=== PATIENT | female | born 1960 | race Caucasian/White ===

== ENCOUNTER → 2016-06-16 | Outpatient (CLI) | payer OTHER ==
[~2016-06-16] MED LIST: AMIT50TA3 PO; ATOR10TA82 PO; CITA20TA4 PO; CLON0.5T3 PO; DICY10CA12 PO; DICY20TA10 PO; LPT10 PO; OMEP20CA59 PO; PRLSR20 PO; SIME1CHW17 PO; VALA500T60 PO; ZNTT/150 PO
--- NOTE | 2016-06-16 16:34 | MAMMOGRAPHY REPORT ---
BILATERAL DIGITAL SCREENING MAMMOGRAM TOMOSYNTHESIS WITH CAD: 06/16/2016 TECHNIQUE: Breast tomosynthesis in addition to standard 2D mammography was performed. Current study was also evaluated with a Computer Aided Detection (CAD) system. COMPARISON: Comparison is made to exams dated: 06/11/2015 mammogram, 06/10/2014 mammogram, 04/16/2013 mammogram, 04/03/2012 mammogram, 03/29/2011 mammogram, and 03/23/2010 mammogram - [facility]. BREAST COMPOSITION: There are scattered areas of fibroglandular density in both breasts. FINDINGS: No suspicious masses, calcifications, or areas of architectural distortion are noted in e ither breast. There has been no significant interval change compared to prior exams. IMPRESSION: ACR BI-RADS CATEGORY 1: NEGATIVE There is no mammographic evidence of malignancy. A 1 year screening mammogram is recommended. The p atient will receive written notification of the results. Approximately 10% of breast cancers are not detected with mammography. A negative mammographic repor t should not delay biopsy if a clinically suggestive mass is present. Aye Means M.D. /:06/16/2016 13:30:02 Genetics Nurse: Nel CONTRERAS)(Elva), [facility] letter sent: Normal 1/2 BI-RADS Code: ACR BI-RADS Category 1: Negative
== END | disposition home or self-care (01) ==
LOC: C.MAMM 13:07
PROVIDERS: ATTEND Obstetrics & Gynecology
DX: Z12.31 Encounter for screening mammogram for malignant neoplasm of breast (principal)

== ENCOUNTER → 2016-07-14 | Outpatient (CLI) | payer OTHER ==
[2016-07-14 12:23] LABS: BASO % 0.6 %; BASO ABS # 0.04 K/uL (0-0.2); COMPLETE YES; EOS % 4.5 %; HEMATOCRIT 44.2 % (37-47); IG% 0.3 %; LYMPH % 32.7 %; LYMPH ABS # 2.05 K/uL (1.2-3.4); MEAN CELL VOLUME 91.5 fL (80-100); MEAN CORPUSCULAR HEMOGLOBIN 30.4 pg (25-34); MEAN CORPUSCULAR HGB CONC 33.3 g/dl (32-36); MEAN PLATELET VOLUME 8.6 fL (7.4-10.4); MONO % 8.1 %; NEUT % 53.8 %; PLATELET COUNT 268 K/uL (130-400); RED BLOOD COUNT 4.83 M/uL (4.2-5.4); WHITE BLOOD COUNT 6.26 K/uL (4.8-10.8)
[2016-07-14 12:30] LABS: ALT/SGPT 56 U/L (12-78); BLOOD UREA NITROGEN 22 mg/dl (7-18); BUN/CREATININE RATIO 24.2 (10-20); CARBON DIOXIDE 27 mmol/L (21-32); CHLORIDE 106 mmol/L (98-107); CHOLESTEROL 186 mg/dl (0-200); GLUCOSE 140 mg/dl (70-99); SODIUM 140 mmol/L (136-145); TRIGLYCERIDES 125 mg/dl (0-150); VERY LOW DENSITY LIPOPROT CALC 25 mg/dl
[2016-07-14 13:14] LABS: ALB/GLOB RATIO 1.2 (0.9-2); ALKALINE PHOSPHATASE 118 U/L (45-117); AST/SGOT 24 U/L (15-37); CHOLESTEROL/HDL RATIO 3.5; HDL CHOLESTEROL 53 mg/dl; LDL CHOLESTEROL CALCULATED 108 mg/dl
== END | disposition home or self-care (01) ==
LOC: C.LABBFT 09:12
PROVIDERS: ATTEND Internal Medicine
DX: Z00.00 Encounter for general adult medical examination without abnormal findings (principal); E78.5 Hyperlipidemia, unspecified; R10.9 Unspecified abdominal pain

== ENCOUNTER → 2016-07-27 | Outpatient (CLI) | payer OTHER ==
[2016-07-27 12:46] LABS: ESTIMATED AVERAGE GLUCOSE 148 mg/dl; HA1C FLAG Normal (Normal)
== END | disposition home or self-care (01) ==
LOC: C.LABBFT 10:30
PROVIDERS: ATTEND Internal Medicine
DX: R73.01 Impaired fasting glucose (principal)

== ENCOUNTER → 2016-08-02 | Outpatient (CLI) | payer OTHER ==
[2016-08-06 23:50] LABS: IGA SERUM 232 mg/dL (81-463); TIS TRANS IGA 1 U/mL (<4)
== END | disposition home or self-care (01) ==
LOC: C.LAB1850 14:56
PROVIDERS: ATTEND Internal Medicine
DX: R14.0 Abdominal distension (gaseous) (principal)

== ENCOUNTER → 2016-09-15 | Day surgery (SDC) | payer OTHER ==
[2016-09-07 08:35] VITALS: Ht 160 cm; Wt 68.2 kg
[~2016-09-15] VITALS: Ht 160 cm; Wt 68.2 kg
[~2016-09-15] MED LIST changes: -AMIT50TA3 PO; -ATOR10TA82 PO; +ATOR10TA88 PO; -DICY10CA12 PO; -LPT10 PO; -OMEP20CA59 PO; -SIME1CHW17 PO
[2016-09-15 11:44] VITALS: BP 141/78; PULSE 65; O2SAT 95
--- NOTE | 2016-09-19 17:07 | Procedure Note ---
Breath Hydrogen Test Interpretation Assessment: Findings consistent with Small Intestinal bacterial overgrowth. Plan: Start Xifaxan 550mg by mouth TID for 14 days. Followup in our office for further evaluation and recommendations.
== END | disposition home or self-care (01) ==
LOC: C.GI 08:19
PROVIDERS: ATTEND Internal Medicine
DX: R10.9 Unspecified abdominal pain (principal); R14.0 Abdominal distension (gaseous)

== ENCOUNTER 2017-01-24 09:40 | Emergency (ER) | payer OTHER ==
[~2017-01-24] VITALS: Ht 157.5 cm; Wt 68.3 kg
[~2017-01-24 09:40] MED LIST changes: +ATOR10TA82 PO; -ATOR10TA88 PO
[2017-01-24 09:45] VITALS: TEMP 36.3; Ht 157.5 cm; Wt 68.3 kg
[2017-01-24] MEDS ORDERED: KETOROLAC TROMETHAMINE 30 MG/ML VIAL IV STA (10:01)
[2017-01-24] MEDS ORDERED: ONDANSETRON INJ 2 MG/ML 2 ML VIAL IV STA (10:01)
[2017-01-24 10:33] LABS: BASO % 1.1 %; BASO ABS # 0.11 K/uL (0-0.2); COMPLETE YES; HEMATOCRIT 47.5 % (37-47); IG% 0.1 %; LYMPH % 27.2 %; LYMPH ABS # 2.61 K/uL (1.2-3.4); MEAN CORPUSCULAR HEMOGLOBIN 30.6 pg (25-34); MEAN CORPUSCULAR HGB CONC 34.7 g/dl (32-36); MEAN PLATELET VOLUME 8.8 fL (7.4-10.4); MONO % 6.7 %; NEUT % 64.9 %; PLATELET COUNT 318 K/uL (130-400)
--- NOTE | 2017-01-24 10:44 | DIAGNOSTIC IMAGING REPORT ---
PA CHEST WITH ABDOMINAL SERIES CLINICAL HISTORY: Epigastric abdominal pain. Bloating. FINDINGS: A PA chest radiograph is compared to study dated 01/09/2015. The cardiomediastinal silhouette is unremarkable. The lungs and pleural spaces are clear. No pneumothorax is seen. The skeletal structures are osteopenic. The bony thorax is grossly intact. There is mild S-shaped thoracolumbar scoliosis. Supine and erect abdominal radiographs are correlated with abdominal CT dated 01/09/2015. There is a nonobstructed abdominal bowel gas pattern. No evidence of intraperitoneal free air is seen. There are small nonobstructing left renal calculi. There is no radiographic evidence of ureteral stone. Small phleboliths are noted in the pelvis. Mild lumbosacral spondylosis is observed. The lumbosacral spine and bony pelvis appear intact. IMPRESSION: 1. No active disease in the chest. 2. Nonobstructed abdominal bowel gas pattern. 3. Nonobstructing left renal calculi. Electronically signed by: Darrin Marsh M.D. 01/24/2017 10:43 AM Dictated Date/Time: 01/24/2017 10:42 AM
[2017-01-24 10:53] LABS: BUN/CREATININE RATIO 19.4 (10-20); CALCIUM 10.4 mg/dl (8.5-10.1); CREATININE 1.06 mg/dl (0.60-1.20); POTASSIUM 3.8 mmol/L (3.5-5.1)
[2017-01-24 11:14] VITALS: BP 140/79; PULSE 69; O2SAT 99
[2017-01-24] MEDS ORDERED: OPTIRAY 320 IV PRN (11:30)
--- NOTE | 2017-01-24 13:46 | EMERGENCY ROOM VISIT NOTE ---
History First contact with patient: 09:49 Chief Complaint: MEDICATION REFILL REQUEST Stated Complaint: MEDICATION REFILL REQUESTED History of Present Illness The patient is a 56 year old female who presents to the Emergency Room stating that she wanted a prescription refill for Cipro. The patient initially stated all she wanted was the prescription that she knew what was wrong with her. She stated that there is bacteria in her stomach and that she had all the testing done in the past and does not need any further testing. She states that she this has been gone on for the last 2-1/2 weeks and she has not been able to sleep. She states she has pain in the epigastric region radiating to her back. She states she had a test done in August and was placed on Cipro. She states that she was told at that time the bacteria could come back. She thinks it is back and would like more antibiotics. She initially did not want evaluated but later agreed to be evaluated and treated in the ER. The patient states she felt warm but did not take her temperature. The patient admits to slight nausea but denies any vomiting. The patient denies any change in bowel habits. The patient denies any urinary symptoms of frequency, urgency, dysuria or hematuria. The patient states that she has not yet gotten established with her [facility] PCP. She was seen in August by a [facility] physician in front of a hospital who referred her to Dr. solano for the test for her stomach. Review of Systems 10 system review was performed and was negative unless stated otherwise history of present illness. Past Medical/Surgical History Medical Problems: (1) Diabetes (2) Helicobacter pylori (H. pylori) infection (3) Herpes zoster (4) Hypertension (5) Kidney stones Family History Cancer Diabetes mellitus Gallbladder disease Heart disease Hypertension Kidney disease Kidney stones Seizures Social History Smoking Status: Never Smoker Alcohol Use: occasionally Marital Status: in relationship Housing Status: lives with significant other Occupation Status: employed Current/Historical Medications Unable to Obtain Active Prescriptions or Reported Meds Physical Exam Vital Signs Date Time Temp Pulse Resp B/P (MAP) Pulse Ox O2 Delivery O2 Flow Rate FiO2 01/24/17 11:14 69 20 140/79 99 Room Air 01/24/17 09:45 36.3 78 22 158/94 99 Room Air Physical Exam GENERAL: 56-year-old white female appears agitated walking around the exam room arching her back sticking her stomach out. She is walking around like she is . MENTAL Status: Alert and oriented 3. The patient if the patient appears very agitated and anxious MOUTH: Mucosa is moist NECK: Supple, no lymphadenopathy noted. No carotid bruits noted. LUNGS: Clear auscultation without wheezes rales or rhonchi. CARDIAC: Regular rate and rhythm without murmur. Pulses is full and equal throughout. BACK: No CVA tenderness noted. ABDOMEN: Positive bowel sounds all 4 quadrants. Patient is pushing out her stomach and therefore it is difficult to evaluate. She does have tenderness in the epigastric region otherwise nontender. Cannot evaluate for organomegaly or masses. EXTREMITIES: No cyanosis or edema noted. Medical Decision & Procedures ER Provider Diagnostic Interpretation: PA CHEST WITH ABDOMINAL SERIES CLINICAL HISTORY: Epigastric abdominal pain. Bloating. FINDINGS: A PA chest radiograph is compared to study dated 01/09/2015. The cardiomediastinal silhouette is unremarkable. The lungs and pleural spaces are clear. No pneumothorax is seen. The skeletal structures are osteopenic. The bony thorax is grossly intact. There is mild S-shaped thoracolumbar scoliosis. Supine and erect abdominal radiographs are correlated with abdominal CT dated 01/09/2015. There is a nonobstructed abdominal bowel gas pattern. No evidence of intraperitoneal free air is seen. There are small nonobstructing left renal calculi. There is no radiographic evidence of ureteral stone. Small phleboliths are noted in the pelvis. Mild lumbosacral spondylosis is observed. The lumbosacral spine and bony pelvis appear intact. IMPRESSION: 1. No active disease in the chest. 2. Nonobstructed abdominal bowel gas pattern. 3. Nonobstructing left renal calculi. Electronically signed by: Darrin Marsh M.D. 01/24/2017 10:43 AM Dictated Date/Time: 01/24/2017 10:42 AM Laboratory Results 01/24/17 10:10 Red Blood Count 5.40, Mean Corpuscular Volume 88.0, Mean Corpuscular Hemoglobin 30.6, Mean Corpuscular Hemoglobin Concent 34.7, Mean Platelet Volume 8.8, Neutrophils (%) (Auto) 64.9, Lymphocytes (%) (Auto) 27.2, Monocytes (%) (Auto) 6.7, Eosinophils (%) (Auto) 0.0, Basophils (%) (Auto) 1.1, Neutrophils # (Auto) 6.23, Lymphocytes # (Auto) 2.61, Monocytes # (Auto) 0.64, Eosinophils # (Auto) 0.00, Basophils # (Auto) 0.11 01/24/17 10:10 Test 01/24/17 10:10 White Blood Count 9.60 K/uL (4.8-10.8) Red Blood Count 5.40 M/uL (4.2-5.4) Hemoglobin 16.5 g/dL (12.0-16.0) Hematocrit 47.5 % (37-47) Mean Corpuscular Volume 88.0 fL (80-100) Mean Corpuscular Hemoglobin 30.6 pg (25-34) Mean Corpuscular Hemoglobin Concent 34.7 g/dl (32-36) Platelet Count 318 K/uL (130-400) Mean Platelet Volume 8.8 fL (7.4-10.4) Neutrophils (%) (Auto) 64.9 % Lymphocytes (%) (Auto) 27.2 % Monocytes (%) (Auto) 6.7 % Eosinophils (%) (Auto) 0.0 % Basophils (%) (Auto) 1.1 % Neutrophils # (Auto) 6.23 K/uL (1.4-6.5) Lymphocytes # (Auto) 2.61 K/uL (1.2-3.4) Monocytes # (Auto) 0.64 K/uL (0.11-0.59) Eosinophils # (Auto) 0.00 K/uL (0-0.5) Basophils # (Auto) 0.11 K/uL (0-0.2) RDW Standard Deviation 42.0 fL (36.4-46.3) RDW Coefficient of Variation 13.2 % (11.5-14.5) Immature Granulocyte % (Auto) 0.1 % Immature Granulocyte # (Auto) 0.01 K/uL (0.00-0.02) Anion Gap 10.0 mmol/L (3-11) Est Creatinine Clear Calc Drug Dose 52.4 ml/min Estimated GFR () 67.0 Estimated GFR (Non- 57.8 BUN/Creatinine Ratio 19.4 (10-20) Calcium Level 10.4 mg/dl (8.5-10.1) Total Bilirubin 1.0 mg/dl (0.2-1) Direct Bilirubin 0.2 mg/dl (0-0.2) Aspartate Amino Transf (AST/SGOT) 19 U/L (15-37) Alanine Aminotransferase (ALT/SGPT) 50 U/L (12-78) Alkaline Phosphatase 143 U/L (45-117) Total Protein 8.9 gm/dl (6.4-8.2) Albumin 4.8 gm/dl (3.4-5.0) Lipase 222 U/L (73-393) Medications Administered Medications (Trade) Dose Ordered Sig/Vicki Route Start Time Stop Time Status Last Admin Dose Admin Ondansetron HCl (Zofran Inj) 4 mg NOW STAT IV 01/24/17 10:01 01/24/17 10:03 DC 01/24/17 10:15 4 MG Ketorolac Tromethamine (Toradol Inj) 30 mg NOW STAT IV 01/24/17 10:01 01/24/17 10:03 DC 01/24/17 10:15 30 MG ED Course The patient was evaluated. The patient's EMR was reviewed. The patient had a breath hydrogen test done on September [address] solano. It revealed small intestinal bacterial overgrowth. She was placed on Xifaxan 550 mg 3 times a day for 14 days. The prescription she showed me was for Cipro from her family doctor, Dr. Linder filled on 09/16/2016. IV access was obtained. CBC and differential, renal profile, LFTs and lipase levels were ordered. The patient was given Toradol 30 mg IV for pain. Abdominal series x-ray was ordered interpreted by the radiologist and myself as above without any acute findings. Labs are reviewed. Patient's white count was normal. Her glucose is elevated at 169 but she is diabetic. Alkaline phosphatase was slightly elevated. The patient was informed of all findings. A CT of the abdomen and pelvis was ordered and she is in agreement with treatment plan.. I also talked with Dr. solano about the patient. He stated that the test that he performed on the patient in August has a very large range of sensitivity from 15-80%. He stated he would be willing to see the patient in follow-up. While awaiting and prepping for her CAT scan with oral contrast the patient took out her IV and left the ER without her nurse knowing. Please see the nurse's note. Medical Decision Differential diagnosis include viral gastritis, GERD, peptic ulcer disease, small bowel obstruction, bowel perforation, acute pancreatitis, acute cholecystitis Medication Reconcilliation Current Medication List: was personally reviewed by me Blood Pressure Screening Patient's blood pressure: Normal blood pressure Impression Primary Impression: Epigastric pain Departure Information Dispostion Against Medical Advice Prescriptions Unable to Obtain Active Prescriptions or Reported Meds Referrals Thuy Saxena D.O. (PCP) Patient Instructions My [facility]
== END 2017-01-24 13:09 | disposition left against medical advice (07) ==
LOC: C.EDB 09:41 → C.EDA 13:09
DX: R10.13 Epigastric pain (principal); E11.9 Type 2 diabetes mellitus without complications; I10 Essential (primary) hypertension; Z87.442 Personal history of urinary calculi; Z83.3 Family history of diabetes mellitus; Z82.49 Family history of ischemic heart disease and other diseases of the circulatory system; Z84.1 Family history of disorders of kidney and ureter; Z82.0 Family history of epilepsy and other diseases of the nervous system

== ENCOUNTER → 2017-06-19 | Outpatient (CLI) | payer OTHER ==
--- NOTE | 2017-06-20 07:40 | MAMMOGRAPHY REPORT ---
BILATERAL DIGITAL SCREENING MAMMOGRAM TOMOSYNTHESIS WITH CAD: 06/19/2017 CLINICAL HISTORY: Routine screening. Patient has no complaints. TECHNIQUE: Breast tomosynthesis in addition to standard 2D mammography was performed. Current study was also evaluated with a Computer Aided Detection (CAD) system. COMPARISON: Comparison is made to exams dated: 06/16/2016 mammogram, 06/11/2015 mammogram, 06/10/2014 m ammogram, 04/16/2013 mammogram, 04/03/2012 mammogram, and 03/29/2011 mammogram - [facility]ter. BREAST COMPOSITION: There are scattered areas of fibroglandular density in both breasts. FINDINGS: The parenchymal pattern is unchanged. No developing mass, architectural distortion or clus ter of suspicious microcalcifications is seen in either breast. IMPRESSION: ACR BI-RADS CATEGORY 2: BENIGN There is no mammographic evidence of malignancy. A 1 year screening mammogram is recommended. The pa tient will receive written notification of the results. Approximately 10% of breast cancers are not detected with mammography. A negative mammographic report should not delay biopsy if a clinically suggestive mass is present. Raven Bernal M.D. ay/:06/19/2017 12:39:08 Perinatology Physician: Shanell PATEL(Kathe)(M), [facility] letter sent: Normal 1/2 BI-RADS Code: ACR BI-RADS Category 2: Benign
== END | disposition home or self-care (01) ==
LOC: C.MAMM 11:45
PROVIDERS: ATTEND Obstetrics & Gynecology
DX: Z12.31 Encounter for screening mammogram for malignant neoplasm of breast (principal)

== ENCOUNTER 2024-12-16 22:01 | Observation (INO) ==
[2024-12-16] MEDS: ACETAMINOPHEN 1,000 MG/100 ML VIAL IV STA (22:53)
[2024-12-16] MEDS: SODIUM CHLORIDE 0.9% 1,000 ML IV ONE (22:54)
--- NOTE | 2024-12-16 23:03 | Emergency Department Note ---
Impression & Plan Hydronephrosis due to obstruction of ureter, Ureterolithiasis, Complicated urinary tract infection, Acute left flank pain ED Provider Note NAME: LAURENCE FELDER AGE: 64 SEX: F : 1960 ARRIVES VIA: Walk-In INFORMANT: Patient ED PROVIDER(S): Juan Vance MD CHIEF COMPLAINT: Left-sided abdominal pain, nausea and vomiting. PLAN: Disposition: Admit MEDICAL DECISION MAKING: The patient is a pleasant 64-year-old woman with a past medical history of nephrolithiasis, hypertension, hyperlipidemia, diabetes, GERD who presents to the Emergency Department via walk-in companied by family for evaluation of left flank/abdominal pain that began abruptly this evening with associated nausea and vomiting. Denies any diarrhea. She reports urinary urgency but denies burning or blood in her urine. She denies any fevers, cough, congestion, chest pain or shortness of breath. On evaluation the patient is uncomfortable no acute distress, afebrile blood pressure 150s/80s and vital signs otherwise stable. She appears clinically dry. She exhibits mild left flank and left lower abdominal discomfort without discrete tenderness. EKG without overt acute ischemia. WBC 13.2 K with neutrophilia but no left shift, nonspecific. H/H and plates within normal limits. Chemistry without metabolic acidosis. LFTs unremarkable. Lipase is normal. UA is suspicious for infection with WBCs and 4+ bacteria albeit with negative nitrites. CT of the abdomen pelvis was completed and per my preliminary independent interpretation demonstrates moderate left-sided hydroureteronephrosis with suspected 6 mm obstructing ureteral stone at the UVJ. Upon evaluation patient did report feeling improvement following IV fluid hydration, IV APAP, Toradol, famotidine and Zofran. She reported pain had improved to a 6/10. Vital signs remained stable. Blood cultures were ordered and treatment initiated for infected ureteral stone with IV Zosyn. Patient does agree with plan for admission for further management. Dr. Morales, [facility] hospitalist, to evaluate the patient for admission. Finally CT report for further characterizes obstructing UVJ stone measuring 7.2 mm. Additional diverticulitis of the sigmoid colon is described without abscess or perforation. Further management per admitting team. Triage Nursing notes reviewed and agree them. Prior/external medical records reviewed Vital Signs: reviewed Differential diagnosis: Renal colic, UTI, appendicitis, diverticulitis, mesenteric ischemia, aortic pathology, infections, inflammatory bowel disease, PUD, biliary pathology, as well as other pathologies. ER treatment provided: See below. Diagnostics interpreted by me: ECG: Normal sinus rhythm, 66 bpm, no ectopy, nonspecific T wave abnormality, no overt ST elevation or depression, QTc 439, QRS 64. Cardiac Monitoring: An order for continuous cardiac monitoring was placed and demonstrated Normal sinus rhythm, 66 bpm, no ectopy Laboratory studies: See below Imaging studies: See below Consultation(s): Dr. Morales, [facility] hospitalist, to evaluate the patient for admission. HPI: Per MDM. ROS: See above HPI for pertinent positives & negatives. A total of 10 systems reviewed and were otherwise negative. VITALS:See Below PHYSICAL EXAMINATION: GENERAL: Awake, alert, uncomfortable-appearing, in no distress HENT: Normocephalic, atraumatic. Oropharynx with dry mucous membranes and otherwise unremarkable. EYES: Normal conjunctiva. Sclera non-icteric. NECK: Supple. No nuchal rigidity. FROM. No JVD. RESPIRATORY: Clear to auscultation. CARDIAC: Regular rate, normal rhythm. Extremities warm and well perfused. Pulses equal. ABDOMEN: Soft, non-distended. Mild left flank and lower abdominal discomfort without discrete tenderness to palpation. No rebound or guarding. No masses. MUSCULOSKELETAL: Chest examination reveals no tenderness. The back is symmetrical on inspection without obvious abnormality. There is no CVA tenderness to palpation. No joint edema. LOWER EXTREMITIES: Calves are equal size bilaterally and non-tender. No edema. No discoloration. NEURO: Normal sensorium. No sensory or motor deficits noted. SKIN: No rash or jaundice noted. Juan Vance MD Past Med/Surg History Problem List (Updated 12/17/24 @ 05:45 by Juan Vance MD) Acute left flank pain (Acute) Complicated urinary tract infection (Acute) Ureterolithiasis (Acute) Hydronephrosis due to obstruction of ureter (Acute) Hypertension (Chronic) Herpes zoster (Chronic) Diabetes (Chronic) Medical History Abdominal pain per granddaughter, saw pcp dr. eagle shortly after cataract surg 09/25/24, states "they are not sure if it's her hernia or her gallbladder, they checked her liver studies at [facility] and said it was normal." Encounter for pre-operative examination IBS (irritable bowel syndrome) Hiatal hernia GERD (gastroesophageal reflux disease) Diabetes Depression Anxiety Migraines Short-term memory loss has a pcp appt today 09/23/24 to see about memory issues > Dr. Nina at [facility]. has gotten progressively worse over 3 mos time per granddaughter, no known TIA's or neuro events Insomnia Hypertension Hyperlipidemia Surgical History Hx of left cataract extraction (09/25/24) History of tooth extraction History of bilateral tubal ligation Social History Smoking Status: Never smoker Second Hand Exposure: No; Do You Dip or Chew Tobacco: No; Hx Alcohol Use: No Hx Substance Use: Yes Last Used Substance: Days (ago) Last Used Substance Other:: cbd gummies daily Substance Use Type Other:: cbd gummies daily Preferred Language: Hungarian Communication Ability: Effective Structures Engineer Required: No Beliefs That Will Affect Care: None Current Living Situation: Family Feels Safe at Home: Yes Safety Concerns: Feels Safe At This Time Assistive Devices: Cane and Glasses Allergies Allergies Allergy/AdvReac Type Severity Reaction Status Date / Time No Known Allergies Allergy Verified 10/16/24 07:42 Home Meds Home Medications Medication Instructions Recorded Confirmed Cbd Gummies 1 dose PO HS 09/23/24 12/17/24 clozapine 25 mg tablet 25 mg PO HS 09/23/24 12/17/24 omeprazole 20 mg tablet,delayed 20 mg PO DAILYBB 09/23/24 12/17/24 release cholecalciferol (vitamin D3) 25 25 mcg PO DAILY 12/17/24 12/17/24 mcg (1,000 unit) tablet (Vitamin D3) clonazepam 0.5 mg tablet 0.5 mg PO TID 12/17/24 12/17/24 famotidine 20 mg tablet 20 mg PO AMHS 12/17/24 12/17/24 metformin 500 mg tablet,extended 1,000 mg PO QAM 12/17/24 12/17/24 release 24 hr ykqayrgd-qkpzuap-gjnm-lutein tablet 1 tab PO DAILY 12/17/24 12/17/24 potassium 99 mg tablet 99 mg PO DAILY 12/17/24 12/17/24 sucralfate 1 gram tablet 1 g PO ACHS 12/17/24 12/17/24 Results & Data (ED) Vital Signs Vital Signs - 24 hr 12/16/24 22:13 12/16/24 23:44 12/16/24 23:59 Temperature 36.5 C Temperature Source Temporal Artery Scan Pulse Rate 76 70 Pulse Rate [Apical] 69 Pulse Rate from SpO2 Sensor Respiratory Rate 16 18 Respiratory Effort / Characteristics Non-Labored Spontaneous Non-Labored Spontaneous Respiratory Depth Normal Normal Respiratory Pattern Regular Blood Pressure 156/81 H Blood Pressure [Left Arm] 100/79 Blood Pressure Mean 106 Blood Pressure Mean [Left Arm] 86 Pulse Oximetry 97 95 Oxygen Delivery Method Room Air Room Air Sepsis Recent Fever Within 48 Hours No Sepsis New/Unexplained Change in Mental Status N/A Sepsis Action Taken by Nursing No Action Required 12/17/24 00:21 12/17/24 00:30 12/17/24 01:00 Temperature Temperature Source Pulse Rate 66 66 60 Pulse Rate [Apical] Pulse Rate from SpO2 Sensor Respiratory Rate 24 17 17 Respiratory Effort / Characteristics Respiratory Depth Respiratory Pattern Blood Pressure 154/84 H 139/84 150/84 H Blood Pressure [Left Arm] Blood Pressure Mean 107 99 116 Blood Pressure Mean [Left Arm] Pulse Oximetry 94 93 95 Oxygen Delivery Method Sepsis Recent Fever Within 48 Hours Sepsis New/Unexplained Change in Mental Status Sepsis Action Taken by Nursing 12/17/24 01:00 12/17/24 01:00 Temperature Temperature Source Pulse Rate 64 Pulse Rate [Apical] Pulse Rate from SpO2 Sensor 63 Respiratory Rate 21 Respiratory Effort / Characteristics Respiratory Depth Respiratory Pattern Blood Pressure 150/84 H Blood Pressure [Left Arm] Blood Pressure Mean 116 Blood Pressure Mean [Left Arm] Pulse Oximetry 93 Oxygen Delivery Method Sepsis Recent Fever Within 48 Hours Sepsis New/Unexplained Change in Mental Status Sepsis Action Taken by Nursing Laboratory Data Attestation: I reviewed the patient's lab results. 12/16/24 22:52 12/16/24 22:52 Lab Results 12/16/24 12/17/24 Range/Units 22:52 01:15 WBC 13.23 H (4.8-10.8) K/ul RBC 4.90 (4.20-5.40) M/uL Hgb 14.8 (12.0-16.0) g/dl Hct 43.0 (37.0-47.0) % MCV 87.8 (80.0-100.0) fL MCH 30.2 (25.0-34.0) pg MCHC 34.4 (32.0-36.0) g/dL RDW Std Deviation 39.2 (36.4-46.3) fL RDW Coeff of Marleny 12.2 (11.5-14.5) % Plt Count 315 (130-400) K/uL MPV 8.5 L (9.4-12.4) fL Immature Gran % (Auto) 0.4 % Neut % (Auto) 85.1 % Lymph % (Auto) 7.4 % Avery % (Auto) 6.5 % Eos % (Auto) 0.2 % Baso % (Auto) 0.4 % Neut # (Auto) 11.27 H (1.40-6.50) K/uL Lymph # (Auto) 0.98 L (1.20-3.40) K/uL Avery # (Auto) 0.86 H (0.11-0.59) K/uL Eos # (Auto) 0.02 (0.00-0.50) K/uL Baso # (Auto) 0.05 (0.00-0.20) K/uL Immature Gran # (Auto) 0.05 (0.01-0.20) K/uL PT 10.9 (9.0-12.0) Seconds INR 1.0 (0.9-1.1) Sodium 137 (136-145) mmol/L Potassium 3.3 L (3.5-5.1) mmol/L Chloride 102 (98-107) mmol/L Carbon Dioxide 25 (21-32) mmol/L Anion Gap 10 (3-11) BUN 14 (6-23) mg/dl Creatinine 0.94 (0.6-1.2) mg/dl Est Cr Clr Drug Dosing 46.6 ml/min eGFR 66.92 BUN/Creatinine Ratio 14.9 (10-20) Glucose 229 H (70-99(Fasting)) mg/dl Lactate 1.3 (0.4-2.0) mmol/L Calcium 10.3 (8.6-10.3) mg/dl Magnesium 2.0 (1.7-2.4) mg/dl Total Bilirubin 1.1 H (0.2-1.0) mg/dl AST 16 (13-39) U/L ALT 31 (7-52) U/L Alkaline Phosphatase 109 H (34-104) U/L Total Protein 7.1 (6.0-8.3) gm/dl Albumin 3.7 (3.4-5.0) gm/dl Globulin 3.4 (2.5-4.0) gm/dl Albumin/Globulin Ratio 1.1 (0.9-2) Lipase 6 L (11-82) U/L Procalcitonin 0.04 (0-0.5) ng/ml Urine Color Yellow Urine Appearance Cloudy A (Clear) Urine pH 7.0 (4.5-7.5) Ur Specific [place] 1.020 (1.000-1.030) Urine Protein Trace H (Negative) Urine Glucose (UA) Trace H (Negative) Urine Ketones 2+ H (Negative) Urine Blood 3+ H (Negative) Urine Nitrite Negative (Negative) Urine Bilirubin Negative (Negative) Urine Urobilinogen Negative (Negative) Ur Leukocyte Esterase Trace H (Negative) Urine RBC 3-5 H (0-2) /hpf Urine WBC 21-50 H (0-5) /hpf Ur Epithelial Cells 0-2 (0-2) /hpf Urine Bacteria 4+ H (None Seen) Urine Comment Administered Medications Sodium Chloride (Nss) 1,000 mls @ 125 mls/hr IV .Q8H TROY Stop: 12/17/24 09:59 Last Admin: 12/17/24 03:15 Dose: 125 mls/hr Documented By: USHA Discontinued Medications Sodium Chloride (Nss) 1,000 mls @ 999 mls/hr IV .Q1H1M ONE Stop: 12/16/24 23:26 Last Infusion: 12/16/24 23:51 Dose: Infused Documented By: Admin: 12/16/24 22:54 Dose: 999 mls/hr Documented By: FLORA Acetaminophen (Ofirmev) 1,000 mg in 100 mls @ 400 mls/hr IV NOW STA Stop: 12/16/24 22:42 Last Infusion: 12/16/24 23:51 Dose: Infused Documented By: Admin: 12/16/24 22:53 Dose: 400 mls/hr Documented By: FLORA Famotidine (Pepcid 20mg Iv Push) 20 mg in 5 mls @ 2.5 mls/min IV NOW STA Stop: 12/16/24 23:03 Last Admin: 12/16/24 23:37 Dose: 2.5 mls/min Documented By: ALFA Piperacillin Sod/Tazobactam Sod (Zosyn) 4.5 gm in 100 mls @ 200 mls/hr IV NOW ONE; Protocol Stop: 12/17/24 01:29 Last Infusion: 12/17/24 02:31 Dose: Infused Documented By: Admin: 12/17/24 01:52 Dose: 200 mls/hr Documented By: ALFA Ioversol (Optiray 320 100ml) 93 ml IV ONCE ONE Stop: 12/17/24 00:17 Last Admin: 12/17/24 00:16 Dose: 93 ml Documented By: TASHA Ketorolac Tromethamine (Ketorolac Tromethamine 15 Mg/Ml Vial) 15 mg IV NOW STA Stop: 12/16/24 23:03 Last Admin: 12/16/24 23:37 Dose: 15 mg Documented By: ALFA Morphine Sulfate (Morphine Sulfate 4 Mg/Ml 1 Ml Carp\\Vial) 4 mg IV NOW STA Stop: 12/17/24 01:01 Last Admin: 12/17/24 01:52 Dose: 4 mg Documented By: ALFA Ondansetron HCl (Ondansetron Inj 2 Mg/Ml 2 Ml Vial) 4 mg IV NOW STA Stop: 12/16/24 23:03 Last Admin: 12/16/24 23:37 Dose: 4 mg Documented By: ALFA Potassium Chloride (Potassium Chloride Crtab 20 Meq Tabcr) 40 meq PO NOW STA Stop: 12/17/24 01:45 Last Admin: 12/17/24 02:33 Dose: Not Given Documented By: ALFA Imaging Data Radiologist's Impression: Abdomen/Pelvis CT 12/16/24 22:26 EXAM: CT abd pelvis IV con only CLINICAL HISTORY: left sided abd pain TECHNIQUE: CT of the abdomen and pelvis was performed with contrast, according to the following protocol: Axial images were obtained, and coronal and sagittal images were reconstructed. One of the following dose reduction techniques was utilized for this exam: automated exposure control, adjustment of the mA and/or kV according to patient size, and use of iterative reconstruction. COMPARISON: Comparison is made with prior dated 01/09/2015. FINDINGS: The visualized lung bases are unremarkable. No pleural or pericardial effusion is noted. Abdomen: Liver: The liver is normal in size (16.1 cm), shape, and density. No focal lesions, cysts, or masses are identified. The hepatic vasculature and biliary ducts are unremarkable. Gallbladder and Biliary System: The gallbladder is normal in size and shape. No wall thickening, pericholecystic fluid, or gallstones are identified. The common bile duct is normal in caliber without dilation. Pancreas: The pancreatic head, body, and tail are visualized and appear normal in size and density. No pancreatic masses or calcifications are noted. The pancreatic duct is not dilated. Spleen: The spleen is normal in size, shape, and density. No splenic lesions or masses are identified. Appendix: The appendix is normal in size without periappendiceal fat stranding and without an appendicolith. No evidence of appendiceal abscess or perforation. Kidneys and Adrenal Glands: Both kidneys are normal in size, shape, and position. Cortical thickness is within normal limits. A 7.2 mm calculus is seen impacted at the left vesicoureteric junction, causing moderate retrograde hydronephroureter, with the renal pelvis measuring 3.0 cm in maximum AP dimension. It has a density of 255 HU. Mild right hydronephrosis is noted, with the renal pelvis measuring 17 mm. This is likely due to an overdistended bladder. Renal cortical scarring is noted at the upper pole of the left kidney. A 3 mm calculus is noted at the corticomedullary demarcation of the upper pole of the left kidney. Another 2 mm calcific density is noted at the lower pole. Both adrenal glands appear bulky. Pelvis: Urinary Bladder: The urinary bladder is normal in contour and wall thickness. No intraluminal lesions are identified. Uterus: The uterus is normal in size and contour. No masses or abnormal thickening are present. Ovaries: The ovaries are not well visualized, but no gross abnormalities are noted. Vagina: The vagina is normal in contour and wall thickness. Cervix: No evidence of mass or abnormal thickening. Peritoneal and Retroperitoneal Structures: No free fluid or abnormal fluid collections are identified within the abdomen or pelvis. No lymphadenopathy is noted. Bowel: Circumferential edematous wall thickening of the sigmoid colon is noted for a segment of 8.1 cm. Background diverticulosis is noted. No associated collection or abscess formation is noted. No proximal obstruction is seen. The visualized small bowel loops appear unremarkable. Bones and Soft Tissues: The visualized thoracic and lumbar spines show mild degenerative changes. No lytic or sclerotic bone lesion is noted. The pelvic bones and soft tissues are unremarkable. No fractures or abnormal masses are identified. IMPRESSION: 1. A 7.2 mm calculus is impacted at the left vesicoureteric junction, causing moderate retrograde hydronephroureter. 2. Left renal nonobstructing calculi with cortical scarring at the upper pole. 3. Acute diverticulitis of the sigmoid colon with circumferential edematous wall thickening for a segment of 8.0 cm. No proximal obstruction or abscess formation is noted. Electronically signed by Amari Sim 12-17-2024 01:50 AM NAME: LAURENCE FELDER AGE: 64 SEX: F : 1960 ARRIVES VIA: Walk-In INFORMANT: Patient ED PROVIDER(S): Juan Vance MD CHIEF COMPLAINT: PLAN: Disposition: MEDICAL DECISION MAKING: Summary Triage Nursing notes reviewed and agree them. Prior/external medical records reviewed Vital Signs: reviewed Differential diagnosis: ER treatment provided: See below. Diagnostics interpreted by me: ECG: None Cardiac Monitoring: An order for continuous cardiac monitoring was placed and demonstrated Laboratory studies: See below Imaging studies: See below Consultation(s): None HPI: Per MDM. ROS: See above HPI for pertinent positives & negatives. A total of 10 systems reviewed and were otherwise negative. VITALS:See Below PHYSICAL EXAMINATION: ED COURSE: Times/Reassessments: Procedures: None PDMP: Reviewed and no issues Critical Care: None Juan Vance MD Discharge Plan Visit Data Chief Complaint: Abdominal Pain Stated Complaint: ABD AND BACK PAIN PAST 2 DAYS ED Provider: Juan Vance Discharge Problem: Hydronephrosis due to obstruction of ureter, Ureterolithiasis, Complicated urinary tract infection, Acute left flank pain Patient Disposition: Admitted As Inpatient Condition: Fair Discharge Instructions Interventions: ED Discharge Assessment Last Done: 12/17/24 02:00
[2024-12-16 23:09] LABS: Hematocrit (blood only) 43.0 % (37.0-47.0); Hemoglobin 14.8 g/dl (12.0-16.0); Immature Granulocytes # (auto) 0.05 K/uL (0.01-0.20); Immature Granulocytes % (auto) 0.4 %; Mean Corpuscular Hemoglobin 30.2 pg (25.0-34.0); Mean Corpuscular Volume 87.8 fL (80.0-100.0); Platelet Count 315 K/uL (130-400); RDW Standard Deviation 39.2 fL (36.4-46.3); Red Blood Count 4.90 M/uL (4.20-5.40); White Blood Count 13.23 K/ul (4.8-10.8)
[2024-12-16 23:27] LABS: Alanine Aminotransferase 31.0 U/L (7-52); Albumin Globulin Ratio 1.1 (0.9-2); Albumin Level 3.7 gm/dl (3.4-5.0); Alkaline Phosphatase 109.0 U/L (34-104); Anion Gap 10.0 (3-11); Bilirubin,Total 1.1 mg/dl (0.2-1.0); Blood Urea Nitrogen 14.0 mg/dl (6-23); Calcium 10.3 mg/dl (8.6-10.3); Carbon Dioxide 25.0 mmol/L (21-32); Chloride 102.0 mmol/L (98-107); Creatinine Clr Calc Pharmacy 46.6 ml/min; Globulin 3.4 gm/dl (2.5-4.0); Glucose 229.0 mg/dl (70-99(Fasting)); Lipase 6.0 U/L (11-82); Potassium 3.3 mmol/L (3.5-5.1); Sodium 137.0 mmol/L (136-145); Total Protein 7.1 gm/dl (6.0-8.3)
[2024-12-16] MEDS: ONDANSETRON INJ 2 MG/ML 2 ML VIAL IV STA (23:37)
[2024-12-16] MEDS: KETOROLAC TROMETHAMINE 15 MG/ML VIAL IV STA (23:37)
[2024-12-16] MEDS: FAMOTIDINE 20MG IV PUSH 20 MG/5 ML SYR IV STA (23:37)
[2024-12-16 23:43] LABS: INR 1.0 (0.9-1.1); Prothrombin Time 10.9 Seconds (9.0-12.0)
[2024-12-16 23:47] LABS: Appearance Urine Cloudy (Clear); Glucose Urine UA Trace (Negative)
[2024-12-17] MEDS: OPTIRAY 320 100ml IV ONE (00:16)
[2024-12-17 00:41] LABS: Epithelial Cell Urine 0-2 /hpf (0-2)
--- NOTE | 2024-12-17 01:50 | CT Scan Report ---
EXAM: CT abd pelvis IV con only CLINICAL HISTORY: left sided abd pain TECHNIQUE: CT of the abdomen and pelvis was performed with contrast, according to the following protocol: Axial images were obtained, and coronal and sagittal images were reconstructed. One of the following dose reduction techniques was utilized for this exam: automated exposure control, adjustment of the mA and/or kV according to patient size, and use of iterative reconstruction. COMPARISON: Comparison is made with prior dated 01/09/2015. FINDINGS: The visualized lung bases are unremarkable. No pleural or pericardial effusion is noted. Abdomen: Liver: The liver is normal in size (16.1 cm), shape, and density. No focal lesions, cysts, or masses are identified. The hepatic vasculature and biliary ducts are unremarkable. Gallbladder and Biliary System: The gallbladder is normal in size and shape. No wall thickening, pericholecystic fluid, or gallstones are identified. The common bile duct is normal in caliber without dilation. Pancreas: The pancreatic head, body, and tail are visualized and appear normal in size and density. No pancreatic masses or calcifications are noted. The pancreatic duct is not dilated. Spleen: The spleen is normal in size, shape, and density. No splenic lesions or masses are identified. Appendix: The appendix is normal in size without periappendiceal fat stranding and without an appendicolith. No evidence of appendiceal abscess or perforation. Kidneys and Adrenal Glands: Both kidneys are normal in size, shape, and position. Cortical thickness is within normal limits. A 7.2 mm calculus is seen impacted at the left vesicoureteric junction, causing moderate retrograde hydronephroureter, with the renal pelvis measuring 3.0 cm in maximum AP dimension. It has a density of 255 HU. Mild right hydronephrosis is noted, with the renal pelvis measuring 17 mm. This is likely due to an overdistended bladder. Renal cortical scarring is noted at the upper pole of the left kidney. A 3 mm calculus is noted at the corticomedullary demarcation of the upper pole of the left kidney. Another 2 mm calcific density is noted at the lower pole. Both adrenal glands appear bulky. Pelvis: Urinary Bladder: The urinary bladder is normal in contour and wall thickness. No intraluminal lesions are identified. Uterus: The uterus is normal in size and contour. No masses or abnormal thickening are present. Ovaries: The ovaries are not well visualized, but no gross abnormalities are noted. Vagina: The vagina is normal in contour and wall thickness. Cervix: No evidence of mass or abnormal thickening. Peritoneal and Retroperitoneal Structures: No free fluid or abnormal fluid collections are identified within the abdomen or pelvis. No lymphadenopathy is noted. Bowel: Circumferential edematous wall thickening of the sigmoid colon is noted for a segment of 8.1 cm. Background diverticulosis is noted. No associated collection or abscess formation is noted. No proximal obstruction is seen. The visualized small bowel loops appear unremarkable. Bones and Soft Tissues: The visualized thoracic and lumbar spines show mild degenerative changes. No lytic or sclerotic bone lesion is noted. The pelvic bones and soft tissues are unremarkable. No fractures or abnormal masses are identified. IMPRESSION: 1. A 7.2 mm calculus is impacted at the left vesicoureteric junction, causing moderate retrograde hydronephroureter. 2. Left renal nonobstructing calculi with cortical scarring at the upper pole. 3. Acute diverticulitis of the sigmoid colon with circumferential edematous wall thickening for a segment of 8.0 cm. No proximal obstruction or abscess formation is noted. Electronically signed by Amari Sim 12-17-2024 01:50 AM
[2024-12-17] MEDS: MoRPHine SULFATE 4 MG/ML 1 ML CARP\\VIAL IV STA (01:52)
[2024-12-17] MEDS: PIPERACILLIN/TAZOBACTAM 4.5 GM/100 ML BAG IV ONE (01:52)
--- NOTE | 2024-12-17 01:56 | History & Physical Report ---
Date of Service December 17, 2024 Assessment & Plan (1) Complicated urinary tract infection: (2) Ureterolithiasis: (3) Hydronephrosis due to obstruction of ureter: (4) Hypertension: (5) GERD (gastroesophageal reflux disease): (6) Depression: (7) Diabetes: Plan 64 yo F being admitted for complicated UTI in setting of left-sided ureterolithiasis with hydronephrosis #Complicated UTI/L Ureterolithiasis/Hydronephrosis - Admit to med/surg - VS per unit protocol - Diet: NPO except meds - IVF hydration with NSS @ 125 ml/hr x1 L - Ceftriaxone 2g IV daily, to start at 0800 - Urine cultures ordered/pending - Urology consulted, appreciate assistance - Pain control with APAP first line, Toradol second line, Morphine third line #Hypokalemia - K+ 3.3, replacement ordered - Trend with labs in AM #NIDDM - NPO status, accuchecks q6 - Hold metformin and glipizide - Continue gabapentin #IBS - Continue dicyclomine #Depression and anxiety - Continue citalopram, klonopin, trazodone, clozapine #GERD - Continue PPI, change to pantoprazole per hospital formulary - Continue famotidine and carafate #HLD - Continue atorvastatin VTE ppx - defer chemoppx in setting of possible urologic procedure Code status - full code Above plan of care has been d/w Dr. Morales who will also see and evaluate this patient. Further orders will be implemented as clinically warranted. History of Present Illness Chief Complaint: Abdominal pain Primary Care Provider: Thuy Eagle DO Laura is a 64 yo F with a pmhx non-insulin dependent T2DM, anxiety and depression, insomnia, chronic marijuana use, GERD, and DLD who presents to the ER today c/o left sided flank and abdominal pain. She reports that she has been having pain associated with n/v and diarrhea off and on since January of last year. According to her daughter who is accompanying her, they [place] to [place] out "what's wrong with her." She routinely follows with [facility] and was last seen in their office on 12/05 for a follow up visit of the persistent n/v/d. At that time, it was recommended that she undergo formal psychiatric evaluation. Family has been adjusting her medications in order to manage her symptoms. Despite thorough work up over the past several months, there has been no acute finding to support her symptoms. Today, however, her work up yielded a leukocytosis on CBC with neutrophilic predominance. Chemistry was notable for a potassium of 3.3. CTAP shows a small punctate ureteral L-sided stone with associated hydronephrosis. She has been medicated in the ER with a dose of Zosyn, IVF, Zofran, Toradol, and Morphine and has been referred to the hospital medicine team for further care. Allergies Allergy/AdvReac Type Severity Reaction Status Date / Time No Known Allergies Allergy Verified 10/16/24 07:42 Home Medications Medication Instructions Recorded Confirmed Type Cbd Gummies 1 dose PO HS 09/23/24 12/17/24 History clozapine 25 mg tablet 25 mg PO HS 09/23/24 12/17/24 History omeprazole 20 mg tablet,delayed 20 mg PO DAILYBB 09/23/24 12/17/24 History release cholecalciferol (vitamin D3) 25 25 mcg PO DAILY 12/17/24 12/17/24 History mcg (1,000 unit) tablet (Vitamin D3) clonazepam 0.5 mg tablet 0.5 mg PO TID 12/17/24 12/17/24 History famotidine 20 mg tablet 20 mg PO AMHS 12/17/24 12/17/24 History metformin 500 mg tablet,extended 1,000 mg PO QAM 12/17/24 12/17/24 History release 24 hr bdlwqqsy-okxuzgu-tkbd-lutein tablet 1 tab PO DAILY 12/17/24 12/17/24 History potassium 99 mg tablet 99 mg PO DAILY 12/17/24 12/17/24 History sucralfate 1 gram tablet 1 g PO ACHS 12/17/24 12/17/24 History Past Med/Surg History Problem List (Updated 12/17/24 @ 01:14 by Juan Vance MD) Complicated urinary tract infection (Acute) Ureterolithiasis (Acute) Hydronephrosis due to obstruction of ureter (Acute) Hypertension (Chronic) Herpes zoster (Chronic) Diabetes (Chronic) Medical History Abdominal pain per granddaughter, saw pcp dr. eagle shortly after cataract surg 09/25/24, states "they are not sure if it's her hernia or her gallbladder, they checked her liver studies at [facility] and said it was normal." Encounter for pre-operative examination IBS (irritable bowel syndrome) Hiatal hernia GERD (gastroesophageal reflux disease) Diabetes Depression Anxiety Migraines Short-term memory loss has a pcp appt today 09/23/24 to see about memory issues > Dr. Nina at [facility]. has gotten progressively worse over 3 mos time per granddaughter, no known TIA's or neuro events Insomnia Hypertension Hyperlipidemia Surgical History Hx of left cataract extraction (09/25/24) History of tooth extraction History of bilateral tubal ligation Social History Smoking Status: Never smoker Second Hand Exposure: No; Do You Dip or Chew Tobacco: No; Hx Alcohol Use: No Hx Substance Use: Yes Last Used Substance: Days (ago) Last Used Substance Other:: cbd gummies daily Substance Use Type Other:: cbd gummies daily Preferred Language: Tongan Communication Ability: Effective Management Lecturer Required: No Beliefs That Will Affect Care: None Current Living Situation: Family Feels Safe at Home: Yes Safety Concerns: Feels Safe At This Time Assistive Devices: Cane and Glasses Review of Systems 2 Review of Systems: All systems reviewed and are unremarkable except as noted in HPI and below. Denies fever, chills, fatigue, headache, nasal congestion, sore throat, cough, chest pain, shortness of breath, palpitations, orthopnea, PND, constipation, dysuria, hematuria, frequency, back pain, joint pain or swelling, easy bruising or bleeding, skin lesions or rashes. Physical Exam 2 Physical Exam: GENERAL: 64 yo well-nourished middle aged WF. No distress. LUNGS: Clear to auscultation bilaterally. No W/R/R. CARDIOVASCULAR: Regular rate and rhythm. ABDOMEN: Soft, non-tender and non-distended. BS normoactive x 4 quad. -CVA tenderness. EXTREMITIES: No edema. Non-tender. Peripheral pulses +2/4. NEUROLOGIC: A&O x3. No focal neurological deficits. CN II-XII grossly intact. PSYCHIATRIC: Cooperative. Appropriate mood and affect. SKIN: Warm, dry, intact. No rashes or lesions. Results & Data Results & Data Vital Signs (Past 12 Hours) Vital Signs Temp Pulse Pulse Resp BP BP Pulse Ox 12/16/24 23:59 70 12/16/24 23:44 69 18 100/79 95 12/16/24 22:13 36.5 C 76 16 156/81 H 97 O2 Del Method 12/16/24 23:59 12/16/24 23:44 Room Air 12/16/24 22:13 Room Air Laboratory Results 12/16/24 22:52 12/16/24 22:52 Diagnostic Findings Per my review of CTAP - small punctate stone noted approximately at UPJ L kidney with associated hydronephrosis Code Status & VTE Plan Code Status Full code Supervising Physician Co-Signing Physician Notes Attending addendum: I have physically seen this patient, have supervised the ANIBAL's activities, and agree with the H&P unless as otherwise noted. Assessment and Plan: The patient is a 64-year-old female with past medical history including hypertension, herpes zoster, Helicobacter pylori infection, kidney stones, and diabetes mellitus. She presented to the emergency department with left-sided abdominal pain, nausea and vomiting that developed acutely earlier this evening prior to arrival. She also reports urinary urgency, but denies hematuria or dysuria. She denies any recent travels or sick exposures. She reports having had a kidney stone decades ago. Workup in the emergency department included a WBC of 13.23, potassium 3.3, glucose 229, urinalysis suggestive of UTI. CT scan of abdomen pelvis revealed a 7.2 mm calculus with left UVJ obstruction causing moderate hydroureteronephrosis. Also noted was acute diverticulitis involving 8 cm of the sigmoid colon. From the ED the patient received the following: Zosyn 4.5 g IV, normal saline 1 L, acetaminophen 1 g IV, famotidine 20 mg IV, Zofran 4 mg IV, and Toradol 15 mg IV. She is then referred for evaluation for admission to the [facility]. Complicated UTI/left UVJ obstructing stone/left hydroureteronephrosis- Admit to [facility] N.p.o. except medications Ceftriaxone 2 g IV daily Follow urine culture and sensitivity Acetaminophen 650 mg by mouth every 6 hours as needed for mild pain or fever Toradol 15 mg IV every 6 hours as needed for moderate pain Morphine sulfate 4 mg IV every 4 hours as needed for severe pain Consult urology Acute sigmoid diverticulitis- As noted involving 8 cm in the sigmoid colon With acute onset of patient's symptoms, the obstructing kidney stone is likely causing most of the discomfort Received Zosyn from the ED And Flagyl 500 mg IV every 8 hours to ceftriaxone above Hypokalemia- Potassium 3.3-Replacement ordered Add a magnesium level to ED labs replace as needed Diabetes mellitus- N.p.o. Holding metformin and glipizide Place on Accu-Cheks with NovoLog SSI GERD- Omeprazole changed to pantoprazole per formulary interchange Remaining orders and notations as noted PG Care Time/CCT Total # of Minutes Spent Total Time Spent with Patient: Total time spent is greater than 50% in coordination of care (as documented) at patient's floor/unit and/or counseling patient: 78 minutes Coding Level of Care Code 89159 INT INP/OBS CARE 3/75MIN Diagnoses Complicated urinary tract infection N39.0 Ureterolithiasis N20.1 Hydronephrosis due to obstruction of ureter N13.1 Hypertension I10 GERD (gastroesophageal reflux disease) K21.9 Depression F32.A Diabetes E11.9
[2024-12-17] MEDS ORDERED: KETOROLAC TROMETHAMINE 15 MG/ML VIAL IV PRN (02:00)
[2024-12-17] MEDS ORDERED: CARBOHYDRATES FOR HYPOGLYCEMIA PO PRN (02:00)
[2024-12-17] MEDS ORDERED: MoRPHine SULFATE 4 MG/ML 1 ML CARP\\VIAL IV PRN (02:00)
[2024-12-17] MEDS ORDERED: GLUCOSE 10 TAB/TUBE PO PRN (02:00)
[2024-12-17] MEDS ORDERED: GLUCAGON FOR INJ 1 MG VIAL SQ PRN (02:00)
[2024-12-17] MEDS ORDERED: DEXTROSE 50% 50 ML SYRINGE IV PRN (02:00)
[2024-12-17] MEDS ORDERED: MELATONIN 3 MG TAB PO PRN (02:00)
[2024-12-17] MEDS ORDERED: GLUCOSE 40% GEL 15 GM TUBE PO PRN (02:00)
[2024-12-17] MEDS ORDERED: ACETAMINOPHEN 325 MG TAB PO PRN (02:00)
[2024-12-17] MEDS ORDERED: ONDANSETRON INJ 2 MG/ML 2 ML VIAL IV PRN ×2 (02:00→10:39)
[2024-12-17] MEDS: POTASSIUM CHLORIDE CRTAB 20 MEQ TABCR PO STA ×2 (02:33→09:47)
[2024-12-17] MEDS: SODIUM CHLORIDE 0.9% 1,000 ML IV SCH (03:15)
[2024-12-17 04:32] LABS: Magnesium 2.0 mg/dl (1.7-2.4)
[2024-12-17] MEDS: SUCRALFATE 1 GM TAB PO SCH (07:39)
[2024-12-17] MEDS: clonazePAM 0.5 MG TAB PO SCH (07:43)
[2024-12-17] MEDS: cefTRIAXone SODIUM 2,000 MG/50 ML BAG IV SCH (07:51)
--- NOTE | 2024-12-17 08:24 | Urology Consultation ---
Date of Consultation December 17, 2024 Assessment & Plan (1) Ureterolithiasis: (2) Hydronephrosis due to obstruction of ureter: Plan Substantial obstruction from a distal left ureteral calculus Discussed different options including trial of passage versus surgical intervention and we discussed the pros and cons of each of these options and risks associated with them Will plan to intervene with cystoscopy and left ureteral stent placement with possible ureteroscopy laser lithotripsyI would likely only perform ureteroscopy laser lithotripsy if I am unable to bypassed the stone with a stent which is a possibility with the distal ureteral calculus. She does understand that if a stent is placed he will likely have to return for definitive treatment of her stone at a future date. We did discuss likelihood of spontaneous passage which is actually quite low given the size of her stone, we also discussed percutaneous access which would be relatively extreme intervention and reserved only if we were unable to successfully place a stent. Consent is signed and on the chart and she is eager to move forward with intervention Keep her n.p.o. for now Has been on ceftriaxone since arrival History of Present Illness Attending Physician: Jessica Casper MD History of Present Illness 64-year-old admitted yesterday with left flank pain Feeling okay overall No severe discomfort currently but has intermittently had bad pain over the past 48 hours Some associated nausea She has a history of kidney stones but is always passed her stone spontaneously and has never required surgical intervention Denies hematuria or dysuria Has had some urgency and frequency Her UA appears consistent with a distal stone but not necessarily a definitive infection She has been on ceftriaxone since arrival in the ER and she is hemodynamically stable and normotensive as well as afebrile Her CT was reviewed and she has substantial dilation of the left ureter down to the UVJ Significant inflammation around that area Allergies Allergy/AdvReac Type Severity Reaction Status Date / Time No Known Allergies Allergy Verified 10/16/24 07:42 Home Medications Medication Instructions Recorded Confirmed Type Cbd Gummies 1 dose PO HS 09/23/24 12/17/24 History clozapine 25 mg tablet 25 mg PO HS 09/23/24 12/17/24 History omeprazole 20 mg tablet,delayed 20 mg PO DAILYBB 09/23/24 12/17/24 History release cholecalciferol (vitamin D3) 25 25 mcg PO DAILY 12/17/24 12/17/24 History mcg (1,000 unit) tablet (Vitamin D3) clonazepam 0.5 mg tablet 0.5 mg PO TID 12/17/24 12/17/24 History famotidine 20 mg tablet 20 mg PO AMHS 12/17/24 12/17/24 History metformin 500 mg tablet,extended 1,000 mg PO QAM 12/17/24 12/17/24 History release 24 hr nqgntzmu-dnuueav-pndw-lutein tablet 1 tab PO DAILY 12/17/24 12/17/24 History potassium 99 mg tablet 99 mg PO DAILY 12/17/24 12/17/24 History sucralfate 1 gram tablet 1 g PO ACHS 12/17/24 12/17/24 History Patient History Medical History Abdominal pain per granddaughter, saw pcp dr. eagle shortly after cataract surg 09/25/24, states "they are not sure if it's her hernia or her gallbladder, they [facility] liver [facility] and said it was normal." Encounter for pre-operative examination IBS (irritable bowel syndrome) Hiatal hernia GERD (gastroesophageal reflux disease) Diabetes Depression Anxiety Migraines Short-term memory loss has a pcp appt today 09/23/24 to see about memory issues > Dr. Nina at [facility]. has gotten progressively worse over 3 mos time per granddaughter, no known TIA's or neuro events Insomnia Hypertension Hyperlipidemia Surgical History Hx of left cataract extraction (09/25/24) History of tooth extraction History of bilateral tubal ligation Social History Smoking Status: Never smoker Second Hand Exposure: No; Do You Dip or Chew Tobacco: No; Hx Alcohol Use: No Hx Substance Use: Yes Last Used Substance: Days (ago) Last Used Substance Other:: cbd gummies daily Substance Use Type Other:: cbd gummies daily Preferred Language: Greek Communication Ability: Effective Door Closer Required: No Beliefs That Will Affect Care: None Current Living Situation: Family Feels Safe at Home: Yes Safety Concerns: Feels Safe At This Time Assistive Devices: Cane and Glasses Physical Exam Physical Exam: Mildly uncomfortable appearing but not toxic No severe left flank pain/tenderness Constitutional: well developed and well nourished Neck: neck nontender Respiratory: normal respiratory effort; no respiratory distress and does not use accessory muscles Cardiovascular: Rate/Rhythm: regular rate Vessels: radial pulses present Extremities: no edema Gastrointestinal (Abdomen): Inspection/Auscultation: abdomen normal to inspection Percussion/Palpation: abdomen soft; abdomen nontender and no guarding Musculoskeletal: Head/Neck/Chest: normocephalic and head atraumatic Extremities: extremities normal to inspection Skin: no rashes and no lesions Trauma: no evidence of skin trauma Neurologic: awake; not obtunded Speech / Cognition: normal speech Motor/Sensory: no tremor Psychiatric: Orientation: alert and oriented x 3 Lymphatic: no lymphadenopathy Results & Data Vital Signs (Past 12 Hours) Vital Signs Temp Pulse Pulse Pulse Resp BP BP 12/17/24 07:03 36.4 C L 56 L 16 148/77 H 12/17/24 03:00 36.5 C 57 L 16 168/81 H 12/17/24 01:00 64 21 12/17/24 01:00 150/84 H 12/17/24 01:00 60 17 150/84 H 12/17/24 00:30 66 17 139/84 12/17/24 00:21 66 24 154/84 H 12/16/24 23:59 70 12/16/24 23:44 69 18 100/79 12/16/24 22:13 36.5 C 76 16 156/81 H Pulse Ox O2 Del Method 12/17/24 07:03 95 Room Air 12/17/24 03:00 96 Room Air 12/17/24 01:00 93 12/17/24 01:00 12/17/24 01:00 95 12/17/24 00:30 93 12/17/24 00:21 94 12/16/24 23:59 12/16/24 23:44 95 Room Air 12/16/24 22:13 97 Room Air PG Care Time/CCT Total # of Minutes Spent Total Time Spent with Patient: Total time spent is greater than 50% in coordination of care (as documented) at patient's floor/unit and/or counseling patient: Coding Level of Care Code 69289 INT INP/OBS CARE 3/75MIN Diagnoses Ureterolithiasis N20.1 Hydronephrosis due to obstruction of ureter N13.1
[2024-12-17] MEDS: METOCLOPRAMIDE HCL 5 MG TABLET PO SCH (08:38)
[2024-12-17] MEDS: CITALOPRAM 20 MG TAB PO SCH (08:38)
[2024-12-17] MEDS: FAMOTIDINE 20 MG TAB PO SCH (08:38)
[2024-12-17] MEDS: GABAPENTIN 300 MG CAP PO SCH (08:38)
[2024-12-17] MEDS: ATORVASTATIN 10 MG TAB PO SCH (08:38)
[2024-12-17] MEDS: DICYCLOMINE HCL 20 MG TAB PO SCH (08:38)
[2024-12-17] MEDS: metroNIDAZOLE 500 MG/100 ML BAG IV SCH (08:39)
[2024-12-17] MEDS ORDERED: ENOXAPARIN INJ 40 MG/0.4 ML SYR SQ SCH (09:00)
[2024-12-17 09:03] LABS: Hematocrit (blood only) 36.1 % (37.0-47.0); Hemoglobin 12.1 g/dl (12.0-16.0); Mean Corpuscular Hemoglobin 30.2 pg (25.0-34.0); Mean Corpuscular Volume 90.0 fL (80.0-100.0); Platelet Count 255 K/uL (130-400); RDW Standard Deviation 40.5 fL (36.4-46.3); Red Blood Count 4.01 M/uL (4.20-5.40); White Blood Count 10.38 K/ul (4.8-10.8)
[2024-12-17 09:20] LABS: Anion Gap 5.0 (3-11); Blood Urea Nitrogen 12.0 mg/dl (6-23); Calcium 9.4 mg/dl (8.6-10.3); Carbon Dioxide 29.0 mmol/L (21-32); Chloride 105.0 mmol/L (98-107); Creatinine Clr Calc Pharmacy 40.9 ml/min; Glucose 178.0 mg/dl (70-99(Fasting)); Potassium 3.1 mmol/L (3.5-5.1); Sodium 139.0 mmol/L (136-145)
[2024-12-17] MEDS ORDERED: ONDANSETRON INJ 2 MG/ML 2 ML VIAL ONE (09:45)
[2024-12-17] MEDS ORDERED: LIDOCAINE 2% 2 ML VIAL/AMP(20MG/ML) INFIL ONE (09:45)
[2024-12-17] MEDS ORDERED: PROPOFOL IV EMULSION 10 MG/ML 20 ML VIAL IV ONE (09:46)
[2024-12-17] MEDS ORDERED: MIDAZOLAM HCL 1 MG/ML 2ML VIAL ONE (09:46)
[2024-12-17] MEDS: MAGNESIUM SULFATE / D5W 1 GM/100 ML BAG IV ONE (09:47)
[2024-12-17] MEDS ORDERED: ATROPINE SULFATE 0.1 MG/ML 10ML SYR IV PRN (10:39)
[2024-12-17] MEDS ORDERED: PROMETHAZINE HCL 6.25 MG in SODIUM CHLORIDE 0.9% 50 ML IV PRN (10:39)
--- NOTE | 2024-12-17 10:39 | Anesthesiology Consultation ---
Date of Service December 17, 2024 Assessment & Plan Chart Review Chart Review: Acceptable Risk for Surgery and Patient NOT seen in Pre Admission Testing Consults Requested none ASA ASA2 Proposed Anesthesia Anesthesia Type: MAC Risk / Benefits Reviewed With: PT / POA / Parent / Guardian, Accepts Plan and Informed Consent Obtained History Surgery Operation Date: 12/17/24 07:45 Proposed Procedures p Cystoscopy, Left Stent Placement - Kike Bernal MD Height/Weight Height: 5 ft 2 in Weight: 58.2 kg Allergies Allergy/AdvReac Type Severity Reaction Status Date / Time No Known Allergies Allergy Verified 10/16/24 07:42 Medications Home Medications Medication Instructions Recorded Confirmed Last Taken Cbd Gummies 1 dose PO HS 09/23/24 12/17/24 10/15/24 clozapine 25 mg tablet 25 mg PO HS 09/23/24 12/17/24 12/15/24 omeprazole 20 mg tablet,delayed 20 mg PO DAILYBB 09/23/24 12/17/24 12/16/24 release cholecalciferol (vitamin D3) 25 25 mcg PO DAILY 12/17/24 12/17/24 Unknown mcg (1,000 unit) tablet (Vitamin D3) clonazepam 0.5 mg tablet 0.5 mg PO TID 12/17/24 12/17/24 12/16/24 famotidine 20 mg tablet 20 mg PO AMHS 12/17/24 12/17/24 12/16/24 metformin 500 mg tablet,extended 1,000 mg PO QAM 12/17/24 12/17/24 12/16/24 release 24 hr zcgslycj-enthuzo-osrt-lutein tablet 1 tab PO DAILY 12/17/24 12/17/24 Unknown potassium 99 mg tablet 99 mg PO DAILY 12/17/24 12/17/24 Unknown sucralfate 1 gram tablet 1 g PO ACHS 12/17/24 12/17/24 12/16/24 Active Medications Generic Name Dose Route Start Last Admin Trade Name Freq PRN Reason Stop Dose Admin Atorvastatin Calcium 10 mg 12/17/24 09:00 12/17/24 08:38 Atorvastatin 10 Mg Tab PO 01/16/25 08:59 10 mg DAILY TROY Administration Citalopram Hydrobromide 10 mg 12/17/24 09:00 12/17/24 08:38 Citalopram 20 Mg Tab PO 01/16/25 08:59 10 mg QAM TROY Administration Clonazepam 0.5 mg 12/17/24 08:00 12/17/24 07:43 Clonazepam 0.5 Mg Tab PO 01/16/25 07:59 0.5 mg TID@0800,1200,2100 TROY Administration Dicyclomine HCl 20 mg 12/17/24 08:00 12/17/24 08:38 Dicyclomine Hcl 20 Mg Tab PO 01/16/25 07:59 20 mg TID@0800,1200,2100 TROY Administration Famotidine 20 mg 12/17/24 09:00 12/17/24 08:38 Famotidine 20 Mg Tab PO 01/16/25 08:59 20 mg BID TROY Administration Gabapentin 300 mg 12/17/24 08:00 12/17/24 08:38 Gabapentin 300 Mg Cap PO 01/16/25 07:59 300 mg TID@0800,1200,2100 TROY Administration Ceftriaxone Sodium 2,000 mg in 50 mls @ 100 mls/hr 12/17/24 08:00 12/17/24 08:35 Rocephin IV 12/27/24 07:59 Infused Q24H TROY Infusion Metronidazole 500 mg in 100 mls @ 100 mls/hr 12/17/24 09:00 12/17/24 09:41 Flagyl IV 12/27/24 08:59 Infused Q8H TROY Infusion Protocol Magnesium Sulfate/Dextrose 1 gm in 100 mls @ 50 mls/hr 12/17/24 09:27 12/17/24 09:47 Magnesium Sulfate / D5w IV 12/17/24 11:26 50 mls/hr ONE ONE Administration Metoclopramide HCl 5 mg 12/17/24 08:00 12/17/24 08:38 Metoclopramide Hcl 5 Mg Tablet PO 01/16/25 07:59 5 mg TID@0800,1200,2100 TROY Administration Sucralfate 1 gm 12/17/24 07:30 12/17/24 07:39 Sucralfate 1 Gm Tab PO 01/16/25 07:29 1 gm ACHS TROY Administration NPO Date Last Intake of Fluids: 12/16/24 Time Last Intake of Fluids: 21:00 Date Last Intake of Solids: 12/16/24 Time Last Intake of Solids: 15:00 Past Medical History Medical History Abdominal pain per granddaughter, saw pcp dr. eagle shortly after cataract surg 09/25/24, states "they are not sure if it's her hernia or her gallbladder, they checked her liver studies at [facility] and said it was normal." Encounter for pre-operative examination IBS (irritable bowel syndrome) Hiatal hernia GERD (gastroesophageal reflux disease) Diabetes Depression Anxiety Migraines Short-term memory loss has a pcp appt today 09/23/24 to see about memory issues > Dr. Nina at [facility]. has gotten progressively worse over 3 mos time per granddaughter, no known TIA's or neuro events Insomnia Hypertension Hyperlipidemia Exercise / Class Metabolic Activity II 4-5 Yardwork/Stairs/Walk up hill Past Surgical History Surgical History Hx of left cataract extraction (09/25/24) History of tooth extraction History of bilateral tubal ligation Past Anesthesia History No Hx of Anesthesia Complications and No Family Hx of Anesthesia Complications History of PONV No Hx of PONV and No Hx of Motion Sickness Social History Smoking Status: Never smoker Do You Dip or Chew Tobacco: No Hx Alcohol Use: No alcohol intake frequency: holidays/special occasions only Hx Substance Use: Yes substance use type: marijuana Substance Use Type Other:: cbd gummies daily Last Used Substance: Days (ago) Last Used Substance Other:: cbd gummies daily Physical Exam Vital Signs Last Vital Signs Temp 36.8 C 12/17/24 10:27 Pulse 64 12/17/24 10:27 Resp 20 12/17/24 10:27 BP 144/76 H 12/17/24 10:27 Pulse Ox 97 12/17/24 10:27 O2 Del Method Room Air 12/17/24 10:27 ENMT Mouth: no dentition abnormality Thyromental Distance: > or= 3.5 Finger Breadths Mallampati Class: II Neck normal visual inspection Respiratory normal respiratory effort Auscultation: lungs clear to auscultation bilaterally Cardiovascular Rate/Rhythm: regular rate and regular rhythm Psychiatric Orientation: alert Testing Laboratory Results 12/17/24 08:38 12/17/24 08:38 PT 10.9 Seconds (9.0-12.0) 10/20/25 22:52 INR 1.0 (0.9-1.1) 12/16/24:52 Urine Color Yellow 12/16/24:52 Urine Appearance Cloudy (Clear) A 12/16/24 22:52 Urine pH 7.0 (4.5-7.5) 12/16/24 22:52 Ur Specific [place] 1.020 (1.000-1.030) 12/16/24 22:52 Urine Protein Trace (Negative) H 12/16/24 22:52 Urine Glucose (UA) Trace (Negative) H 12/16/24:52 Urine Ketones 2+ (Negative) H 12/16/24:52 Urine Nitrite Negative (Negative) 12/16/24 22:52 Ur Leukocyte Esterase Trace (Negative) H 12/16/24 22:52 Urine RBC 3-5 /hpf (0-2) H 12/16/24 22:52 Urine WBC 21-50 /hpf (0-5) H 12/16/24 22:52 Ur Epithelial Cells 0-2 /hpf (0-2) 12/16/24 22:52 12/17/24 12/17/24 12/17/24 10:30 08:02 03:19 POC Glucose 148 H 155 H 198 H
--- NOTE | 2024-12-17 11:13 | Operative Report ---
PG Post Operative Report Pre & Post Diagnosis Operation Date: 12/17/24 07:45 Pre-Op Diagnosis: Ureterolithiasis, Hydronephrosis due to obstruction of ureter Post-Op Diagnosis: Ureterolithiasis, Hydronephrosis due to obstruction of ureter I identified the patient and participated in the time-out.: Yes Procedure Operation Date: 12/17/24 07:45 Actual Procedures p Cystoscopy, Left Stent Placement(Left) - Kike Bernal MD Surgeon Kike Bernal MD Java Android Developer none Estimated Blood Loss 0 Findings Consistent with Post-Op Diagnosis Specimens none Description of Procedure The patient was identified in the preoperative holding area, appropriate informed consents were reviewed and completed and the patient was transferred to the operative suite. Upon arrival, appropriate antibiotics and anesthesia were administered and the patient was placed in dorsal lithotomy position and prepped and draped in sterile fashion. A begin the case we passed a 21 B[place]ian cystoscope with 30 degree lens. Inspection revealed a healthy appearing bladder and urethra, there was no evidence of infection within the bladder. Ureteral orifices were in orthotopic position and she does have a notable rectocele. Following my inspection of the bladder I turned my attention the left UO and cannulated with a 5 B[place]udian open- ended catheter and sensor wire and the wire advanced the kidney without difficulty. Of note, she has a delayed nephrogram and has residual contrast within her collecting system showing dilation of the ureter all the way down to the bladder. I placed a 6 B[place]udian by 24 cm double-J stent with a good curl in the upper pole of the kidney as well as the bladder. The case was concluded and she was reversed of anesthesia. We will plan for definitive stone treatment as an outpatient in a few weeks I attest to the content of the Intraoperative Record and any orders documented therein. Any exceptions are noted below.
[2024-12-17 12:08] VITALS: RESP 16
--- NOTE | 2024-12-17 12:10 | Anesthesiology Progress Note ---
Date of Service December 17, 2024 Anesthesia Post Procedure Vital Signs Vital Signs: Temp Pulse Pulse Pulse Resp BP BP 12/17/24 12:07 62 16 145/93 H 12/17/24 11:42 37.0 C 62 18 134/65 12/17/24 11:30 36.3 C L 76 20 131/66 12/17/24 11:20 60 16 108/77 12/17/24 11:13 36.3 C L 60 16 126/64 12/17/24 10:27 36.8 C 64 20 144/76 H 12/17/24 07:03 36.4 C L 56 L 16 148/77 H 12/17/24 03:00 36.5 C 57 L 16 168/81 H 12/17/24 01:00 64 21 12/17/24 01:00 150/84 H 12/17/24 01:00 60 17 150/84 H 12/17/24 00:30 66 17 139/84 12/17/24 00:21 66 24 154/84 H 12/16/24 23:59 70 12/16/24 23:44 69 18 100/79 12/16/24 22:13 36.5 C 76 16 156/81 H Pulse Ox O2 Del Method O2 Flow Rate 12/17/24 12:07 96 Room Air 12/17/24 11:42 98 Room Air 12/17/24 11:30 96 Room Air 12/17/24 11:20 96 Room Air 12/17/24 11:13 99 Oxymask 6 12/17/24 10:27 97 Room Air 12/17/24 07:03 95 Room Air 12/17/24 03:00 96 Room Air 12/17/24 01:00 93 12/17/24 01:00 12/17/24 01:00 95 12/17/24 00:30 93 12/17/24 00:21 94 12/16/24 23:59 12/16/24 23:44 95 Room Air 12/16/24 22:13 97 Room Air Pain Intensity Left Flank: Pain Intensity: 7 Transfer of Care Handoff Completed per policy Notes Mental Status: alert / awake / arousable Patient Amnestic to Procedure: Yes Nausea / Vomiting: adequately controlled Pain: adequately controlled Airway Patency, RR, SpO2: stable & adequate BP & HR: stable & adequate Hydration State: stable & adequate Anesthetic Complications: no major complications apparent
--- NOTE | 2024-12-17 12:34 | Fluoroscopy Report ---
INTRAOPERATIVE RADIOGRAPH CLINICAL HISTORY: Left ureteral stent placement. Fluoro time: 3 seconds Ka,r: 0.49 mGy FINDINGS: A single spot fluoroscopic view of the left abdomen is correlated with abdominal CT dated . The image shows the proximal end of a left ureteral stent in appropriate position. Contras t in the left renal collecting system shows hydronephrosis. IMPRESSION: Intraoperative image from a left ureteral stent placement procedure. Electronically signed by: Darrin Marsh M.D. 12/17/2024 12:32 PM
[2024-12-17 14:55] VITALS: BP 125/75; TEMP 97.5; O2SAT 93
[2024-12-17 17:06] VITALS: PULSE 76
--- NOTE | 2024-12-17 18:16 | Discharge Summary ---
Discharge Summary Date of Service December 17, 2024 Principal Dx & Hospital Course #1 = Principal Diagnosis (1) Complicated urinary tract infection: (2) Diverticulitis large intestine w/o perforation or abscess w/o bleeding: (3) Ureterolithiasis: (4) Hydronephrosis due to obstruction of ureter: (5) Hypertension: (6) GERD (gastroesophageal reflux disease): (7) Depression: (8) Diabetes: Plan #Complicated UTI/L Ureterolithiasis/Hydronephrosis 64 yo F being admitted for complicated UTI in setting of left-sided ureterolithiasis with hydronephrosis. CT A/P also showing diverticulitis, pt reports issues with her bowels since last january. She was started on ceftiraxone. Seen by Urology who took her to the OR 12/17 for stent placement, and will need outpatient follow up for stent removal and stone treatment. Pain well controlled post op, stable for discharge home with prn pyridium, oxybutyin and tramadol for breakthrough pain. Daily flomax. Will discharge on Augmentin for UTI and diveticulitis. Urine culture pending Blood cultures pending #Diverticulitis without abscess - changes in stool for the last 10 months, unclear if having abdominal pain or just flank pain. Will be covered on augmentin as above. #Hypokalemia - replaced PO and given 1gm IV mag. Asymptomatic #NIDDM - resume metformin and glipizide. Continue gabapentin #IBS- Continue dicyclomine #Depression and anxiety- Continue citalopram, klonopin, trazodone, clozapine #GERD- Continue PPI, famotidine and carafate #HLD - Continue atorvastatin VTE ppx - defer chemoppx in setting of possible urologic procedure Code status - full code Above plan of care has been d/w Dr. Morales who will also see and evaluate this patient. Further orders will be implemented as clinically warranted. Notes For Next Care Provider Medication Changes From Visit course of augmentin Admission HPI Per Admitting Provider Laura is a 64 yo F with a pmhx non-insulin dependent T2DM, anxiety and depression, insomnia, chronic marijuana use, GERD, and DLD who presents to the ER today c/o left sided flank and abdominal pain. She reports that she has been having pain associated with n/v and diarrhea off and on since January of last year. According to her daughter who is accompanying her, [place] out "what's wrong with her." She routinely follows with [facility] and was last seen in their office on 12/05 for a follow up visit of the persistent n/v/d. At that time, it was recommended that she undergo formal psychiatric evaluation. Family has been adjusting her medications in order to manage her symptoms. Despite thorough work up over the past several months, there has been no acute finding to support her symptoms. Today, however, her work up yielded a leukocytosis on CBC with neutrophilic predominance. Chemistry was notable for a potassium of 3.3. CTAP shows a small punctate ureteral L-sided stone with associated hydronephrosis. She has been medicated in the ER with a dose of Zosyn, IVF, Zofran, Toradol, and Morphine and has been referred to the hospital medicine team for further care. Discharge Exam General: NAD, VS as above Resp: normal respiratory effort, lungs clear to auscultation CV: RRR, no murmur, Abd: normal bowel sounds, non tender, soft Extremities: Moves all extremities, no edema Neuro: A&O x3, Discharge Plan Discharge Items Patient Disposition: Home - Self-Care Reason For Visit: URETEROLITHIASIS, COMPLICATED UTI Discharge Diagnosis: kidney stone with UTI, diverticulitis Condition on Discharge: Fair Activity: Resume your previous activity Non-emergency contact: Primary Care Provider and Urologist Call non-emergency contact if: you have any medication questions, your symptoms worsen, your pain is not controlled and your temperature is above 101 Follow-up/Referrals: Kike Bernal MD [Physician] - ( follow-up for stone treatment and stent removal) Thuy Saxena DO [Primary Care Provider] - ( follow-up within 1 week) Diet: Regular Addtl Attending Provider Instructions: Ms. Carlin You were hospitalized after having flank pain and abdominal found to be from kidney stones. You were seen by urology and taken to the OR to have a stent placed on 12/[address] Bernal. Your urine was also concerning for infection so you have been started on antibiotics, these will be continued at discharge. You will need to follow up with urology for stent removal and stone treatment. You were also found to have diverticulitis which is an infection of the colon outpouchings called diverticulosis. This will also be covered by the antibiotics for your urinary tract infection. Recommend low fiber diet - handout listed below. Medication Changes/Recommendations: * Continue flomax daily while stent in place - this is to help with easier passage of urine * Pyridium as needed for pain with urination - this can cause your urine/feces to be discolored/orange * oxybutyin as needed for bladder/ureteral spasms * Augmentin. Please take the entire course, even if you feel well. * Pain control - tylenol and ibuprofen as needed OTC, tramadol as needed for breakthrough pain - Do NOT Take tramadol if taking CBD gummies It is normal to still have discomfort in the flank area while the stent is in place, this pain may be worse with movement. Blood tinged urine can also be common. If you are having persistent dark bloody urine or thick bloody urine for >8 hours please contact your urologist. It is important that you are staying hydrated while the stent is in place. The urology office should be contacting you to schedule and appointment. If you do not hear from them by Monday please contact them at [phone] Please contact the urologist if you have any uncontrolled pain, fevers > 100F, or inability to urinate. CONTACT YOUR PRIMARY CARE PROVIDER if you experience any of the following: Shortness of breath or difficulty breathing Fevers or chills Feeling tired with normal activity or experiencing dizziness or fainting Difficulty following your treatment plan, or difficulty taking medications Call the urologist : - if inability to urinate - lightheadedness or dizziness from blood loss CALL 911 OR GO TO THE EMERGENCY DEPARTMENT if you experience any of the following: Severe abdominal pain or nausea/vomiting Severe chest pain, or chest pain that radiates (moves) to your jaw or arm Sudden, severe shortness of breath or difficulty breathing Thank you for allowing us to participate in your care. Pending Studies at Discharge: Yes ( urine culture, blood culture) Stand-Alone Forms: [facility], Smoking Cessation Medications and DC Order Prescriptions: New tamsulosin [Flomax] 0.4 mg capsule 0.4 mg PO DAILY Qty: 30 0RF phenazopyridine [Pyridium] 100 mg tablet 100 mg PO Q8H PRN (Reason: pain) Qty: 6 0RF oxybutynin chloride 5 mg tablet 5 mg PO BID PRN (Reason: bladder spasms) Qty: 10 0RF amoxicillin-pot clavulanate 875-125 mg tablet 1 tab PO BID Qty: 20 0RF tramadol 50 mg tablet 50 mg PO Q6H PRN (Reason: breakthrough pain, moderate) Qty: 10 0RF Continued clonazepam 0.5 mg tablet 0.5 mg PO TID Rx Instructions: morning,noon and before bedtime metformin 500 mg tablet extended release 24 hr 1,000 mg PO QAM famotidine 20 mg tablet 20 mg PO AMHS sucralfate 1 gram tablet 1 g PO ACHS aicuvjnk-zlkgghy-oogh-lutein Tablet 1 tab PO DAILY cholecalciferol (vitamin D3) [Vitamin D3] 25 mcg (1,000 unit) Tablet 25 mcg PO DAILY potassium 99 mg Tablet 99 mg PO DAILY atorvastatin 10 mg tablet 10 mg 1XD citalopram 10 mg tablet 10 mg DAILY metoclopramide HCl 5 mg tablet 5 mg TID trazodone 100 mg tablet 100 mg HS dicyclomine 20 mg tablet 20 mg TID gabapentin 300 mg capsule 300 mg TID clozapine 25 mg Tablet 25 mg PO HS omeprazole 20 mg Tablet,Delayed Release (Dr/Ec) 20 mg PO DAILYBB Cbd Gummies 1 dose PO HS Discharge Orders: Discharge Order (Routine); Ordered 12/17/24 Ordered By: Doreen Mane/Other Patient Handouts: Having a Ureteral Stent, Diverticulitis Dc Admission Data Admit Date/Time: 12/17/24 01:44 Attending Provider: Jessica Casper Admit Provider: Tobin Morales Primary Care Provider: Thuy Saxena Other Providers: Tobin Morales; Kike Bernal Other Interventions: Discharge Summary Assessment (RN) Last Done: 12/17/24 17:05 Hospital Stay Data Consultations 12/17/24 01:00 ED Decision to Admit Stat 12/17/24 02:00 Consult Urology Routine Procedures Performed Operation Date: 12/17/24 07:45 Actual Procedures p Cystoscopy, Left Stent Placement(Left) - Kike Bernal MD Diagnostic Imagining Performed Abdomen/Pelvis CT 12/16/24 22:26 EXAM: CT abd pelvis IV con only CLINICAL HISTORY: left sided abd pain TECHNIQUE: CT of the abdomen and pelvis was performed with contrast, according to the following protocol: Axial images were obtained, and coronal and sagittal images were reconstructed. One of the following dose reduction techniques was utilized for this exam: automated exposure control, adjustment of the mA and/or kV according to patient size, and use of iterative reconstruction. COMPARISON: Comparison is made with prior dated 01/09/2015. FINDINGS: The visualized lung bases are unremarkable. No pleural or pericardial effusion is noted. Abdomen: Liver: The liver is normal in size (16.1 cm), shape, and density. No focal lesions, cysts, or masses are identified. The hepatic vasculature and biliary ducts are unremarkable. Gallbladder and Biliary System: The gallbladder is normal in size and shape. No wall thickening, pericholecystic fluid, or gallstones are identified. The common bile duct is normal in caliber without dilation. Pancreas: The pancreatic head, body, and tail are visualized and appear normal in size and density. No pancreatic masses or calcifications are noted. The pancreatic duct is not dilated. Spleen: The spleen is normal in size, shape, and density. No splenic lesions or masses are identified. Appendix: The appendix is normal in size without periappendiceal fat stranding and without an appendicolith. No evidence of appendiceal abscess or perforation. Kidneys and Adrenal Glands: Both kidneys are normal in size, shape, and position. Cortical thickness is within normal limits. A 7.2 mm calculus is seen impacted at the left vesicoureteric junction, causing moderate retrograde hydronephroureter, with the renal pelvis measuring 3.0 cm in maximum AP dimension. It has a density of 255 HU. Mild right hydronephrosis is noted, with the renal pelvis measuring 17 mm. This is likely due to an overdistended bladder. Renal cortical scarring is noted at the upper pole of the left kidney. A 3 mm calculus is noted at the corticomedullary demarcation of the upper pole of the left kidney. Another 2 mm calcific density is noted at the lower pole. Both adrenal glands appear bulky. Pelvis: Urinary Bladder: The urinary bladder is normal in contour and wall thickness. No intraluminal lesions are identified. Uterus: The uterus is normal in size and contour. No masses or abnormal thickening are present. Ovaries: The ovaries are not well visualized, but no gross abnormalities are noted. Vagina: The vagina is normal in contour and wall thickness. Cervix: No evidence of mass or abnormal thickening. Peritoneal and Retroperitoneal Structures: No free fluid or abnormal fluid collections are identified within the abdomen or pelvis. No lymphadenopathy is noted. Bowel: Circumferential edematous wall thickening of the sigmoid colon is noted for a segment of 8.1 cm. Background diverticulosis is noted. No associated collection or abscess formation is noted. No proximal obstruction is seen. The visualized small bowel loops appear unremarkable. Bones and Soft Tissues: The visualized thoracic and lumbar spines show mild degenerative changes. No lytic or sclerotic bone lesion is noted. The pelvic bones and soft tissues are unremarkable. No fractures or abnormal masses are identified. IMPRESSION: 1. A 7.2 mm calculus is impacted at the left vesicoureteric junction, causing moderate retrograde hydronephroureter. 2. Left renal nonobstructing calculi with cortical scarring at the upper pole. 3. Acute diverticulitis of the sigmoid colon with circumferential edematous wall thickening for a segment of 8.0 cm. No proximal obstruction or abscess formation is noted. Electronically signed by Amari Sim 12-17-2024 01:50 AM Abdomen Fluoroscopy 12/17/24 10:30 INTRAOPERATIVE RADIOGRAPH CLINICAL HISTORY: Left ureteral stent placement. Fluoro time: 3 seconds Ka,r: 0.49 mGy FINDINGS: A single spot fluoroscopic view of the left abdomen is correlated with abdominal CT dated 12/17/2024. The image shows the proximal end of a left ureteral stent in appropriate position. Contrast in the left renal collecting system shows hydronephrosis. IMPRESSION: Intraoperative image from a left ureteral stent placement procedure. Electronically signed by: Darrin Marsh M.D. 12/17/2024 12:32 PM Pending Results Patient Have Any Pending Studies at Discharge: Yes ( urine culture, blood culture) Discharge Instructions Given to Patient (Per Discharging Provider) Ms. Carlin You were hospitalized after having flank pain and abdominal found to be from kidney stones. You were seen by urology and taken to the OR to have a stent placed on 12/[address] Bernal. Your urine was also concerning for infection so you have been started on antibiotics, these will be continued at discharge. You will need to follow up with urology for stent removal and stone treatment. You were also found to have diverticulitis which is an infection of the colon outpouchings called diverticulosis. This will also be covered by the antibiotics for your urinary tract infection. Recommend low fiber diet - handout listed below. Medication Changes/Recommendations: * Continue flomax daily while stent in place - this is to help with easier passage of urine * Pyridium as needed for pain with urination - this can cause your urine/feces to be discolored/orange * oxybutyin as needed for bladder/ureteral spasms * Augmentin. Please take the entire course, even if you feel well. * Pain control - tylenol and ibuprofen as needed OTC, tramadol as needed for breakthrough pain - Do NOT Take tramadol if taking CBD gummies It is normal to still have discomfort in the flank area while the stent is in place, this pain may be worse with movement. Blood tinged urine can also be common. If you are having persistent dark bloody urine or thick bloody urine for >8 hours please contact your urologist. It is important that you are staying hydrated while the stent is in place. The urology office should be contacting you to schedule and appointment. If you do not hear from them by Monday please contact them at [phone] Please contact the urologist if you have any uncontrolled pain, fevers > 100F, or inability to urinate. CONTACT YOUR PRIMARY CARE PROVIDER if you experience any of the following: Shortness of breath or difficulty breathing Fevers or chills Feeling tired with normal activity or experiencing dizziness or fainting Difficulty following your treatment plan, or difficulty taking medications Call the urologist : - if inability to urinate - lightheadedness or dizziness from blood loss CALL 911 OR GO TO THE EMERGENCY DEPARTMENT if you experience any of the following: Severe abdominal pain or nausea/vomiting Severe chest pain, or chest pain that radiates (moves) to your jaw or arm Sudden, severe shortness of breath or difficulty breathing Thank you for allowing us to participate in your care. Total Time Total Time Spent Total Time Spent (In Minutes): Time spent day of discharge 40 minutes including direct patient care, medication reconciliation, documentation, review of labs and images, and coordination of care. Coding Level of Care Code 83530 INP/OBS DISCH >30 MIN Diagnoses Complicated urinary tract infection N39.0 Diverticulitis large intestine w/o perforation or abscess w/o bleeding K57.32 Ureterolithiasis N20.1 Hydronephrosis due to obstruction of ureter N13.1 Hypertension I10 GERD (gastroesophageal reflux disease) K21.9 Depression F32.A Diabetes E11.9
--- NOTE | 2024-12-20 06:06 | Electrocardiogram Report ---
Test Reason : Blood Pressure : */* mmHG Vent. Rate : 66 BPM Atrial Rate : 66 BPM P-R Int : 146 ms QRS Dur : 64 ms QT Int : 324 ms P-R-T Axes : 58 27 46 degrees QTcB Int : 339 ms Normal sinus rhythm Nonspecific T wave abnormality Abnormal ECG When compared with ECG of 05-Jul-2010 12:37, No significant change Confirmed by Wale Arriola ([id number]) on 12/20/2024 6:06:10 AM Referred By: REFERRED SELF Confirmed By: Wale Arriola
== END 2024-12-17 17:06 | disposition home or self-care (01) | DRG 660 ==
LOC: ED 22:01 → SUATTDRO 12-17 01:44 → INTOOBSV 12-17 01:44 → EDINP 12-17 01:44 → 3E 12-17 02:58